=== PATIENT | female | born 1955 | race Caucasian/White ===

== ENCOUNTER 2022-12-31 12:06 | Outpatient (CLI) | payer MEDICARE, OTHER | END 2022-12-31 12:07 | disposition home or self-care (01) | LOC: BICULT 12:06 | PROVIDERS: ATTEND Physician Assistant Medical | DX: R74.01 Elevation of levels of liver transaminase levels (principal); K76.0 Fatty (change of) liver, not elsewhere classified | CPT/HCPCS: 76705 ==